=== PATIENT | male | born 1950 | race Caucasian/White ===

== ENCOUNTER 2019-11-12 09:49 | Outpatient (CLI) | payer MEDICARE, BC ==
--- NOTE | 2019-11-12 11:36 | RAD ---
THORACOLUMBAR SPINE: DATE: 11/12/2019. FINDINGS: AP and lateral views of the low thoracic and upper lumbar spine were obtained. There are degenerativ e changes throughout consisting of osteophytes. No disk space narrowing, fracture, or area of bony d eformity was seen. IMPRESSION: Generalized moderate degenerative change. POS: HOME
--- NOTE | 2019-11-12 11:36 | RAD ---
RIGHT HIP TWO VIEWS: 11/12/2019 FINDINGS: No fracture, dislocation or joint space narrowing is seen. The articular surfaces of the femoral head are smooth. No gross cause for pain was seen. IMPRESSION: No acute finding. POS: HOME
== END 2019-11-12 09:50 | disposition home or self-care (01) ==
LOC: BURRAD 09:49
PROVIDERS: ATTEND Nurse Practitioner Family
DX: M25.551 Pain in right hip (principal); M54.6 Pain in thoracic spine; M47.815 Spondylosis without myelopathy or radiculopathy, thoracolumbar region
CPT/HCPCS: 72080

== ENCOUNTER 2019-12-31 10:39 | Outpatient (CLI) | payer MEDICARE, BC ==
--- NOTE | 2019-12-31 18:26 | RAD ---
CERVICAL SPINE 12/31/19 AP, lateral, swimmers and open mouth views are provided. No acute fracture or dislocation was seen. T he C1 to dens distance is normal and the soft tissues are normal in thickness. There is probably slig ht disc space narrowing at C6-C7 along with some minimal anterior osteophyte here. Some mild to moder ate facet arthritis is suggested in the mid to lower cervical levels. Calcification or ossification o f the ligamentum nuchae is noted posteriorly. IMPRESSION: Mild chronic changes but no acute findings. POS: HOME
--- NOTE | 2019-12-31 18:30 | RAD ---
LUMBAR SPINE THREE VIEWS: 12/31/19 No acute fracture or disc space narrowing was seen. The SI joints are symmetrical. Anterior osteophyt es are seen at most levels. Some facet arthritis is probably present in the lower lumbar region. IMPRESSION: Degenerative changes but no acute bony findings. Note, there is some very slightly dilated small bowel, but this is probably reactive. If the patient had concerning abdominal symptoms, then a CT could potentially be done as follow-up. Currently, the s ignificance of this finding is felt to be low. POS: HOME
--- NOTE | 2019-12-31 18:34 | RAD ---
RIGHT SHOULDER THREE VIEWS: 12/31/19 The right AC joint is quite wide and bony density is seen in the middle of it. The findings suggest a n old injury to the distal clavicle and AC joint, rather than a new one. There is some irregularity o f the top of the humerus near the greater tubercle. This is longstanding. There is no dislocation. Th e scapula appears intact, as do the visible adjacent ribs. IMPRESSION: Old traumatic changes involving the right AC joint. POS: HOME
== END 2019-12-31 10:40 | disposition home or self-care (01) ==
LOC: BURRAD 10:39
PROVIDERS: ATTEND Nurse Practitioner Family
DX: M25.511 Pain in right shoulder (principal); M54.5 Low back pain; M54.2 Cervicalgia; M47.816 Spondylosis without myelopathy or radiculopathy, lumbar region; Z87.828 Personal history of other (healed) physical injury and trauma
CPT/HCPCS: 72040; 72100